=== PATIENT | female | born 1995 ===

== ENCOUNTER 2016-07-12 09:57 | Inpatient (IN) | payer OTHER, MEDICAID ==
[2016-07-12] VITALS (7 sets, daily range): BP systolic 106–135; BP diastolic 56–100; PULSE 56–96; TEMP 98.9–99.1
[~2016-07-12] VITALS: Ht 167.6 cm; Wt 107.7 kg
[2016-07-12] MEDS ORDERED: ADDERALL XR20 MG PO (15:21)
[2016-07-12] MEDS ORDERED: PRENATAL MVI (15:22)
[2016-07-12] MEDS ORDERED: MOTRIN 800800 MG/TAB PO ×2 (15:22→15:23)
[2016-07-13] VITALS (13 sets, daily range): BP systolic 110–134; BP diastolic 51–82; PULSE 77–98; TEMP 98.2–99
[2016-07-13 08:15] LABS: BASO % 0.1 % (0.0-2.0); EOS # 0.1 (0.0-0.7); EOS % 1.1 % (0-4.0); GRAN # 5.8 (1.4-6.5); GRAN % 71.9 % (42.2-75.2); LYMPH # 1.6 (1.2-3.4); MEAN CELL VOLUME 78 fl (80.0-95.0); MEAN CORPUSCULAR HGB CONC 31 g/dl (33.0-37.0); MEAN PLATELET VOLUME 11.3 fl (7.4-10.4); MONO # 0.5 (0.1-0.6); MONO % 6.5 % (1.7-9.3); PLATELET COUNT 245 K/mm3 (130-400); RED BLOOD COUNT 4.63 M/mm3 (4.10-5.30); REDCELL DISTRIBUTION WIDTH-CV 17.8 % (11.5-14.5)
[2016-07-13 08:19] LABS: ADJUSTED CALCIUM 8.8 mg/dL (8.4-10.2); ALBUMIN 3.8 gm/dL (3.5-5.0); BILIRUBIN,TOTAL 2.8 mg/dL (0.0-1.0); CALCIUM 8.6 mg/dL (8.4-10.2); CREATININE, serum 0.72 mg/dL (0.52-1.25); POTASSIUM 3.5 mmol/L (3.4-5.0); TOTAL PROTEIN 7.1 gm/dL (6.4-8.2)
[2016-07-13 08:27] LABS: HEMATOCRIT 36.1 % (35.0-45.0); MEAN CORPUSCULAR HEMOGLOBIN 24 pg (26.0-32.0)
[2016-07-14 01:38] VITALS: BP 116/62; PULSE 75; TEMP 97.8
[2016-07-14 06:15] VITALS: BP 105/71; PULSE 76; TEMP 98
[2016-07-14 09:59] VITALS: BP 115/66; PULSE 77; TEMP 98.7
[2016-07-14 13:39] VITALS: BP 117/61; PULSE 74; TEMP 98.7
== END 2016-07-14 18:08 | disposition home or self-care (01) | DRG 419 ==
LOC: SURG 09:57
PROVIDERS: Surgery
PROC: 0FC98ZZ Extirpation of Matter from Common Bile Duct, Via Natural or Artificial Opening Endoscopic (ICD-10-PCS; 2016-07-12)
PROC: BF131ZZ Fluoroscopy of Gallbladder and Bile Ducts using Low Osmolar Contrast (ICD-10-PCS; principal; 2016-07-13 14:00)
PROC: 0FT44ZZ Resection of Gallbladder, Percutaneous Endoscopic Approach (ICD-10-PCS; principal; 2016-07-13 14:00)
DX: K80.63 Calculus of gallbladder and bile duct with acute cholecystitis with obstruction (principal)
CPT/HCPCS: C1769; J1100; J1170; J1885; J1956; J2250; J2405; J2550; J2704; J2710; J3010; J7030; J7042; J7120; Q9967

== ENCOUNTER 2021-10-13 19:07 | Emergency (ER) | payer SELFPAY ==
[~2021-10-13] VITALS: Ht 167.6 cm; Wt 86.4 kg
[~2021-10-13 19:07] MED LIST: ADDERALL XR20 MG PO; CIPRO 500MG TA500 MG PO; FLAGYL500 MG PO; MOTRIN 800800 MG/TAB PO; PRENATAL MVI; ZOFRAN ODT4 MG PO
[2021-10-13 19:29] VITALS: BP 118/87; TEMP 97.8
[2021-10-13 22:13] VITALS: PULSE 88
== END 2021-10-13 22:13 | disposition home or self-care (01) ==
LOC: COL.ER 19:07
DX: M79.641 Pain in right hand (principal); M79.631 Pain in right forearm; Z28.310 Unvaccinated for COVID-19; W22.01XA Walked into wall, initial encounter